=== PATIENT | male | born 1980 | race Caucasian/White ===

== ENCOUNTER 2019-03-04 05:58 | Emergency (ER) | payer SELFPAY ==
[~2019-03-04] VITALS: Ht 162.6 cm; Wt 72.6 kg
--- NOTE | 2019-03-04 06:00 | NUR ---
Patient to ER bed 4 to gown for evaluation. Side rails up. Report given to Dunia YU.
[2019-03-04 06:01] VITALS: BP_SYST 154
--- NOTE | 2019-03-04 06:13 | NUR ---
Spoke to P deposition operator Julio César and she verified they are aware of the incident, gave me incident number [id number].
--- NOTE | 2019-03-04 06:33 | NUR ---
ER at bedside examining patient.
--- NOTE | 2019-03-04 07:10 | NUR ---
report received from Hari YU. Pt is currently in CT scan.
--- NOTE | 2019-03-04 07:25 | NUR ---
pt returned from Ct scan. Pt is AAOx4. Pt was rear [place] free[place] this am. C-collar is in place. police lieutenant patrol placed. Will continue to monitor.
--- NOTE | 2019-03-04 08:39 | NUR ---
ER at bedside speaking with the pt.
[2019-03-04] MEDS ORDERED: KETOROLAC TROMETHAMINE 60 MG/2 ML VIAL IM ONE (08:45)
--- NOTE | 2019-03-04 09:00 | NUR ---
Medicated the pt eith Toradol per MD order. Will reassess.
[2019-03-04 09:24] VITALS: BP_SYST 154
--- NOTE | 2019-03-04 09:27 | NUR ---
Patient given written and verbal discharge instructions and verbalizes understanding. ER MD discussed with patient the results and treatment provided. Patient in stable condition. ID arm band removed. Rx of Naprosyn 500mg given. Patient educated on pain management and to follow up with PMD. Pain Scale 3/10. Opportunity for questions provided and answered. Medication side effect fact sheet provided.
== END 2019-03-04 09:27 | disposition home or self-care (01) ==
LOC: SED 05:58
DX: S43.402A Unspecified sprain of left shoulder joint, initial encounter (principal); S13.9XXA Sprain of joints and ligaments of unspecified parts of neck, initial encounter; S33.5XXA Sprain of ligaments of lumbar spine, initial encounter; V43.53XA Car driver injured in collision with pick-up truck in traffic accident, initial encounter; Y93.89 Activity, other specified; Y92.410 Unspecified street and highway as the place of occurrence of the external cause; Y99.8 Other external cause status
CPT/HCPCS: 71250; 72125; 72131; 73030; 96372; 99284; J1885